=== PATIENT | female | born 1970 | race Caucasian/White ===

== ENCOUNTER → 2017-12-05 | Outpatient (CLI) | payer OTHER ==
--- NOTE | 2017-12-05 21:00 | Diagnostic Imaging Report ---
EXAM: Complete Abdominal Ultrasound INDICATION: ^ABDOMINAL BLOATING COMPARISON: None. TECHNIQUE: Transverse and longitudinal images of the upper abdomen were obtained. FINDINGS: Exam limited by overlying bowel gas. Liver: Size: 15.8 cm in the right midclavicular line, normal Appearance: Normal echogenicity, smooth contour Mass: No focal masses Spleen: Size: 9.2 cm in length, normal Echogenicity: Normal Mass: No focal masses Gallbladder: Stones/Sludge: None Wall: 0.2 cm Appearance: No wall thickening, pericholecystic fluid or hydrops. Sonographic Servin's Sign: Negative Bile Ducts: Intrahepatic Ducts: No dilatation Extrahepatic Ducts: Common bile duct measures 0.2 cm, no dilatation Pancreas: Obscured by overlying bowel gas. Kidneys: Length: Right 10.8 cm Left 11.1 cm Echogenicity: Normal Collecting System: No hydronephrosis Stone: None Cyst/Mass: 0.6 x 0.6 x 0.5 cm echogenic cortical lesion without posterior acoustic shadowing in the superior to mid right kidney. 2.2 x 2.1 x 2.3 cm cystic, anechoic lesion in the inferior pole of the left kidney. Vessels: Aorta: Distal aorta is unremarkable. Proximal and mid portions are obscured by overlying bowel gas. Inferior Vena Cava: Unremarkable Main Portal Vein: 0.8 cm, normal size with hepatopetal flow. Free Fluid: No ascites or pleural effusion IMPRESSION: 1. 0.6 cm echogenic nonshadowing cortical lesion in the superior to mid right kidney likely represents an angiomyolipoma. A cortical calcification is less likely given the lack of shadowing. This may be further assessed with contrast-enhanced abdominal MRI with renal mass protocol. 2. 2.2 cm simple cyst in the left kidney. Signed by: Dr. Jose Eduardo Reid M.D. on 12/05/2017 8:57 PM
== END ==
LOC: US 16:31
PROVIDERS: ATTEND Family Medicine
DX: R14.0 Abdominal distension (gaseous) (principal)
CPT/HCPCS: 76700